=== PATIENT | female | born 1960 | race Caucasian/White ===

== ENCOUNTER 2016-11-10 08:58 | Emergency (ER) | payer OTHER ==
[2016-11-10 09:08] VITALS: BP 128/69; PULSE 79; RESP 16; TEMP 97.5; O2SAT 96
--- NOTE | 2016-11-10 09:23 | EDPHY ---
H & P Time Seen by Provider: 11/10/16 09:10 HPI/ROS: CHIEF COMPLAINT: left hand laceration HISTORY OF PRESENT ILLNESS: Patient is a 56-year-old female who presents to the emergency department after cutting her left hand with a kitchen food chopper. She was holding the blade when she cut the palmar aspect just over her 4th and 5th metacarpal. She does not feel the foreign body. Bleeding is controlled. She can move her finger freely. She has no numbness or tingling. REVIEW OF SYSTEMS: My complete review of systems is negative except as mentioned in the HPI. Past Medical/Surgical History: Denies Past surgical history: Denies Smoking Status: Never smoked Physical Exam: General Appearance: Alert and no distress. Head: Pupils equal. Normal. Respiratory: No respiratory distress. Cardiac: regular rate and rhythm. Extremities: patient has a crescent-shaped laceration on the palmar aspect of her hand over the 4th and 5th metacarpal. This is approximately 1 cm in length. The total length of laceration is 2 cm. However, there is a 1 cm deeper section of the laceration and the other 1 cm is an abrasion.. Skin: No rashes or lesions. Neuro: Alert. Normal mood and affect. Constitutional: Initial Vital Signs Temperature (C) 36.4 C 11/10/16 09:00 Heart Rate 79 11/10/16 09:00 Respiratory Rate 16 11/10/16 09:00 Blood Pressure 128/69 H 11/10/16 09:00 O2 Sat (%) 96 11/10/16 09:00 O2 Delivery Mode Room Air Allergies/Adverse Reactions: corn Allergy (Verified 11/10/16 09:06) gluten Allergy (Verified 11/10/16 09:06) soy Allergy (Verified 11/10/16 09:06) Home Medications: Medication Instructions Recorded NK [No Known Home Meds] 11/10/16 Medical Decision Making ED Course/Re-evaluation: In the emergency department I discussed possible treatment options with the patient. I initially discussed wound adhesive and suture repair. The patient asked this wound could be observed in would heal well. Based on the size the wound I feel it will help if nothing were done. I answered the patient's and her 's questions regarding care options. Patient consented to suture repair. Procedure: Laceration repair. Verbal consent was obtained from the patient. The 2 cm laceration on the left hand was anesthetized in the usual fashion. The wound was irrigated, draped and explored to its base with a gloved finger. There were no deep structures involved. No tendon injury was identified. The wound was repaired with 5 0 nylon. The wound repair was simple #2. The procedure was performed by myself. Differential Diagnosis: Patient has a laceration on the palmar aspect of her hand. She is neurovascularly intact distally. I doubt foreign body. Bleeding is controlled Departure - Departure Disposition: Home, Routine, Self-Care Clinical Impression: Laceration Condition: Good Instructions: Laceration (ED) Additional Instructions: You need your sutures removed in 5-7 days. Keep the wound clean and dry.
== END 2016-11-16 12:20 | disposition home or self-care (01) ==
PROC: 0HQGXZZ Repair Left Hand Skin, External Approach (ICD-10-PCS; principal; 2016-11-10)
DX: S61.412A Laceration without foreign body of left hand, initial encounter (principal); W45.8XXA Other foreign body or object entering through skin, initial encounter